=== PATIENT | male | born 1990 | race Caucasian/White ===

== ENCOUNTER 2020-06-28 13:04 | Emergency (ER) | payer BC, OTHER ==
[~2020-06-28] VITALS: Ht 185.4 cm; Wt 90.2 kg
--- NOTE | 2020-06-28 13:33 | NUR ---
PT NOTED TO HAVE OCCASIONAL DRY COUGH. C/O BODY ACHES AND FEVER. NO FEVER AT THIS TIME BUT PT TOOK TYLENOL TODAY.
[2020-06-28 13:48] LABS: BASOPHILS # (AUTO) 0.02 x10^3/uL (0-0.1); BASOPHILS % (AUTO) 0 % (0-1); EOSINOPHILS # (AUTO) 0.01 x10^3/uL (0-0.4); EOSINOPHILS % (AUTO) 0 % (1-7); LYMPHOCYTES # (AUTO) 2.11 x10^3/uL (1-3.4); LYMPHOCYTES % (AUTO) 38 % (22-44); MD NO; MEAN CORPUSCULAR HGB CONC 32.5 g/dL (33.2-36.2); MEAN PLATELET VOLUME 7.2 fL (7.4-10.4); MONOCYTES # (AUTO) 0.41 x10^3/uL (0.2-0.8); MONOCYTES % (AUTO) 7 % (2-9); NEUTROPHILS # (AUTO) 3.02 x10^3/uL (1.8-6.8); NEUTROPHILS % (AUTO) 54 % (42-75); PLATELET COUNT 192 x10^3/uL (130-400); RED BLOOD COUNT 5.74 x10^6/uL (4.38-5.82); RED CELL DISTRIBUTION WIDTH 12.4 % (9.4-14.8)
[2020-06-28 13:54] LABS: ALANINE AMINOTRANSFERASE 93 U/L (12-78); ALBUMIN 3.7 g/dL (3.4-5.0); ANION GAP 5 mmol/L (5-15); CALCIUM 8.6 mg/dL (8.5-10.1); CHLORIDE 104 mmol/L (98-107); CREATININE 1.19 mg/dL (0.7-1.3)
[2020-06-28 13:57] LABS: ALKALINE PHOSPHATASE 71 U/L (45-117); BILIRUBIN,TOTAL 0.4 mg/dL (0.2-1.0); TOTAL PROTEIN 8.4 g/dL (6.4-8.2)
[2020-06-28 14:40] VITALS: BP 138/90
--- NOTE | 2020-06-28 14:51 | NUR ---
AFTER IV ESTABLISHED PT TO CT
[2020-06-28] MEDS ORDERED: OMNIPAQUE 350 MG/ML, 75ML BOTTLE ONE (15:02)
--- NOTE | 2020-06-28 15:45 | NUR ---
PROVIDER AT BEDSIDE DISCUSSING TEST RESULTS WITH PT
--- NOTE | 2020-06-28 16:40 | NUR ---
PT RECEIVED DISCHARGE INSTRUCTIONS. PT STATED HE HAD NO FURTHER QUESTIONS. PT AMBULATED TO DC DESK, STEADY GAIT.
== END 2020-06-28 16:44 | disposition home or self-care (01) ==
LOC: ED 14:06
DX: M79.10 Myalgia, unspecified site (principal); R53.1 Weakness; Z21 Asymptomatic human immunodeficiency virus [HIV] infection status; R00.0 Tachycardia, unspecified; R50.9 Fever, unspecified; R05 Cough
CPT/HCPCS: 36415; 71045; 71275; 80053; 85025; 85379; 86361; 86701; 86702; 87535; 87536; 87806; 93005; 99285; Q9967; G0475